=== PATIENT | male | born 1950 | race American Indian/Alaskan Native ===

== ENCOUNTER 2017-05-29 13:01 | Inpatient (IN) | payer MEDICARE ==
[2017-05-29] MEDS ORDERED: HEPARIN IV ONE (13:07)
[2017-05-29] MEDS ORDERED: NACL 0.9% 1000 ML 1,000 ML IV ONE (13:07)
--- NOTE | 2017-05-29 13:10 | Emergency Department Report ---
ED Chest Pain HPI - General Stated Complaint: STEMI Time Seen by Provider: 05/29/17 13:07 - History of Present Illness Initial Comments: 67-year-old [place]amese male presents to the emergency department by EMS from home with complaint of midsternal/substernal nonradiating chest pain that's been going on since about 2 AM. He received some sublingual nitroglycerin and aspirin in route and had some relief but not resolution. He was found by EMS to be diaphoretic. He has a past medical history of hypertension, hyperlipidemia, and diabetes. He denies any previous history of PR, CVA, PE/ DVT. He denies any tobacco or illicit drug use or abuse. He saw Dr. Monroy about one year ago for cardiology follow-up. - Related Data Home Medications Medication Instructions Recorded Confirmed Last Taken Losartan/Hydrochlorothiazide 1 each PO DAILY 05/27/13 03/08/16 03/08/16 [Hyzaar 100-25 TAB] Omeprazole [PriLOSEC] 20 mg PO QDAY 05/27/13 03/08/16 03/08/16 amLODIPine [Norvasc] 1 tab PO DAILY 05/27/13 03/08/16 03/08/16 glipiZIDE [Glucotrol] 10 mg PO QDAY 05/27/13 03/08/16 03/08/16 metFORMIN [Glucophage] 1,000 mg PO BID 05/27/13 03/08/16 03/08/16 Hydralazine HCl [Apresoline TAB] 50 mg PO Q12H 03/15/14 03/08/16 03/08/16 Latanoprost 0.005% [Xalatan 0.005%] 1 drop OP HS 06/10/15 03/08/16 03/07/16 Previous Rx's Medication Instructions Recorded Last Taken Type Atenolol [Tenormin] 50 mg PO DAILY tablet 02/07/15 03/08/16 Rx Pantoprazole [Protonix] 40 mg PO QDAY #30 tablet 03/09/16 Unknown Rx Allergies Allergy/AdvReac Type Severity Reaction Status Date / Time No Known Allergies Allergy Verified 05/29/17 13:08 Heart Score - HEART Score History: Highly suspicious EKG: Non-specific Age: 45-65 Risk factors: > 3 risk factors or hx of atherosclerotic disease Troponin: < normal limit HEART Score: 6 - Critical Actions Critical Actions: 4-6 pts:12-16.6% risk of adverse cardiac event. Should be admitted ED Review of Systems ROS: Stated complaint: STEMI Other details as noted in HPI Comment: All other systems reviewed and negative Constitutional: diaphoresis. denies: chills, fever Eyes: denies: eye pain, eye discharge, vision change ENT: denies: ear pain, throat pain Respiratory: denies: cough, wheezing Cardiovascular: chest pain. denies: palpitations Gastrointestinal: nausea. denies: abdominal pain Genitourinary: denies: urgency, dysuria Musculoskeletal: denies: back pain, joint swelling, arthralgia Skin: denies: rash, lesions Neurological: denies: headache, weakness, paresthesias ED Past Medical Hx - Past Medical History Hx Hypertension: Yes Hx Congestive Heart Failure: No Hx Diabetes: Yes (FOR 8 YRS) Hx Arthritis: Yes Hx Asthma: No Hx COPD: No Hx HIV: No Additional medical history: gout, hyperlipidemia. SLEEP APNEA - Surgical History Additional Surgical History: back surgery, R arm surgery,left hip replacemenrt 2014 - Social History Smoking Status: Never Smoker - Medications Home Medications: Home Medications Medication Instructions Recorded Confirmed Last Taken Type Losartan/Hydrochlorothiazide 1 each PO DAILY 05/27/13 03/08/16 03/08/16 History [Hyzaar 100-25 TAB] Omeprazole [PriLOSEC] 20 mg PO QDAY 05/27/13 03/08/16 03/08/16 History amLODIPine [Norvasc] 1 tab PO DAILY 05/27/13 03/08/16 03/08/16 History glipiZIDE [Glucotrol] 10 mg PO QDAY 05/27/13 03/08/16 03/08/16 History metFORMIN [Glucophage] 1,000 mg PO BID 05/27/13 03/08/16 03/08/16 History Hydralazine HCl [Apresoline TAB] 50 mg PO Q12H 03/15/14 03/08/16 03/08/16 History Atenolol [Tenormin] 50 mg PO DAILY tablet 02/07/15 03/08/16 03/08/16 Rx Latanoprost 0.005% [Xalatan 0.005%] 1 drop OP HS 06/10/15 03/08/16 03/07/16 History Pantoprazole [Protonix] 40 mg PO QDAY #30 tablet 03/09/16 Unknown Rx ED Physical Exam - Other Other exam information: GENERAL: The patient is well-developed well-nourished. HENT: Normocephalic. Atraumatic. Patient has moist mucous membranes. EYES: Extraocular motions are intact. Pupils equal reactive to light bilaterally. NECK: Supple. Trachea is midline. CHEST/LUNGS: Clear to auscultation. There is no respiratory distress noted. HEART/CARDIOVASCULAR: Regular. There is no tachycardia. There is no murmur. ABDOMEN: Abdomen is soft, nontender. Patient has normal bowel sounds. There is no abdominal distention. Obese habitus. SKIN: Patient is diaphoretic. NEURO: The patient is awake, alert, and oriented. The patient is cooperative. The patient has no focal neurologic deficits. The patient has normal speech. MUSCULOSKELETAL: There is no tenderness or deformity. There is no limitation range of motion. There is no evidence of acute injury. ED Course Vital Signs 05/29/17 05/29/17 05/29/17 13:03 13:10 13:12 Temperature 98.8 F 75 F L Pulse Rate 74 98 H Respiratory 16 16 16 Rate Blood Pressure 103/54 Blood Pressure 103/54 [Left] O2 Sat by Pulse 97 97 97 Oximetry 05/29/17 05/29/17 05/29/17 14:11 14:14 14:19 Temperature 97.9 F Pulse Rate 75 75 73 Respiratory 19 17 18 Rate Blood Pressure 132/72 135/75 136/94 Blood Pressure [Left] O2 Sat by Pulse 94 93 92 Oximetry 05/29/17 05/29/17 05/29/17 14:23 14:28 14:32 Temperature Pulse Rate 74 73 71 Respiratory 15 16 17 Rate Blood Pressure 124/68 137/72 127/72 Blood Pressure [Left] O2 Sat by Pulse 93 96 97 Oximetry 05/29/17 05/29/17 14:45 15:00 Temperature Pulse Rate 67 65 Respiratory 18 14 Rate Blood Pressure 124/73 104/41 Blood Pressure [Left] O2 Sat by Pulse 70 L 69 L Oximetry - Consultations Consultation #1: Since the patient last saw [facility], Dr. Monroy was contacted as the interventionalist on-call. He is aware of the patient's presentation and EKG findings and has been accepted to be transferred to the Screen Machine Operator for further evaluation. 05/29/17 13:09 BRANT score - Brant Score Age > 65: (0) No Aspirin use within the Past 7 Days: (1) Yes 3 or more CAD Risk Factors: (1) Yes 2 or more Angina events in past 24 hrs: (1) Yes Known CAD with more than 50% Stenosis: (0) No Elevated Cardiac Markers: (0) No ST Deviation Greater than 0.5mm: (1) Yes BRANT Score: 4 ED Medical Decision Making - Lab Data Result diagrams: 05/29/17 13:09 05/29/17 13:09 - EKG Data -: EKG Interpreted by Me EKG shows normal: sinus rhythm, axis (left axis deviation), intervals (left anterior fascicular block), QRS complexes (LVH), ST-T waves (ST elevation to the anterior and lateral leads, ST depression to lead 3 and aVF) Rate: normal - EKG Data When compared to previous EKG there are: previous EKG unavailable Interpretation: acute PR - Radiology Data Radiology results: image reviewed interpreted by me: Chest x-ray does not show any acute process. There are no pleural effusions, obvious pneumonia and there is no pneumothorax. - Medical Decision Making Patient presents with substernal chest pain and presents diaphoretic. He has multiple risk factors for coronary artery disease. EKG throughout both EMS and in the emergency department appear concerning for anterolateral PR. Labs have been unremarkable thus far. Patient went to the Screen Machine Operator after receiving heparin bolus and drip. He appears to have some significant RCA disease but it is nonobstructing at that time and no stent placement was necessary. At the request of the telecommunications field technician, the admitting hospitalist has been made aware and between the 2 of them they will decide who will be the admitting physician. - Differential Diagnosis STEMI, NSTEMI, ACS, Pneumonia Critical Care Time: No Critical care attestation.: If time is entered above; I have spent that time in minutes in the direct care of this critically ill patient, excluding procedure time. ED Disposition Clinical Impression: Chest tightness, Acute coronary syndrome Chest pain Qualifiers: Chest pain type: chest pain due to myocardial ischemia Qualified Code(s): I20.9 - Angina pectoris, unspecified Disposition: OP ADMIT IP TO THIS HOSP Is pt being admited?: Yes Condition: Fair Time of Disposition: 15:31
[2017-05-29 13:16] LABS: Basophils # (Auto) 0.1 K/mm3 (0.0-0.1); Basophils % (Auto) 0.9 % (0.0-1.8); Eosinophils # (Auto) 0.1 K/mm3 (0.0-0.4); Hemoglobin 14.9 gm/dl (11.8-15.2); Lymphocytes # (Auto) 2.4 K/mm3 (1.2-5.4); Lymphocytes % (Auto) 40.9 % (13.4-35.0); Mean Corpuscular HGB Conc 33 % (32-34); Mean Corpuscular Volume 78 fl (84-94); Monocytes # (Auto) 0.6 K/mm3 (0.0-0.8); Monocytes % (Auto) 10.8 % (0.0-7.3); Platelet Count 172 K/mm3 (140-440); Red Blood Count 5.79 M/mm3 (3.65-5.03); Red Cell Distribution Width 14.2 % (13.2-15.2)
[2017-05-29 13:19] LABS: Mean Corpuscular Hemoglobin 26 pg (28-32)
[2017-05-29] MEDS ORDERED: HEPARIN/ 0.45% NACL-25,000 UNIT/500 ML 25,000 UNIT/500 ML BAG IV SCH ×2 (13:22→14:00)
[2017-05-29] MEDS ORDERED: VERSED IV ONE (13:25)
[2017-05-29] MEDS ORDERED: HEPARIN/NS 5000 UNIT/500ML(CATH LAB) IR ONE (13:25)
[2017-05-29] MEDS ORDERED: SUBLIMAZE IV ONE (13:25)
[2017-05-29] MEDS ORDERED: XYLOCAINE 2% INFILTRATI ONE (13:26)
[2017-05-29 13:28] LABS: INR 0.94 (0.87-1.13)
[2017-05-29 13:38] LABS: BUN/Creatinine Ratio 7; Blood Urea Nitrogen 9 mg/dL (9-20); Calcium 8.3 mg/dL (8.4-10.2); Hemolysis Index 14
[2017-05-29] MEDS ORDERED: LASIX ONE (13:42)
[2017-05-29] MEDS ORDERED: PLAVIX PO ONE (14:00)
[2017-05-29] MEDS ORDERED: NACL 0.9% 1000 ML 1,000 ML IV SCH (14:00)
--- NOTE | 2017-05-29 14:08 | Consultation ---
History of Present Illness Consult date: 05/29/17 Consult reason: chest pain History of present illness: 67y M who is admitted with chest pain. ECG in ambulance and again in ER consistent with acute STEMI of lateral wall. Emergency cardiac cath: NO significant obstructive lesions corresponding with ST elevation on ECG. Recommended for medical therapy and aggressive RF modification. Non-obsrtuctive, moderate severity stenosis of the proximal RCA will be followed clinically and with stress thallium in the outpatient's. Past History Past Medical History: CAD, diabetes, hypertension Medications and Allergies Allergies Allergy/AdvReac Type Severity Reaction Status Date / Time No Known Allergies Allergy Verified 05/29/17 13:08 Home Medications Medication Instructions Recorded Confirmed Last Taken Type Losartan/Hydrochlorothiazide 1 each PO DAILY 05/27/13 03/08/16 03/08/16 History [Hyzaar 100-25 TAB] Omeprazole [PriLOSEC] 20 mg PO QDAY 05/27/13 03/08/16 03/08/16 History amLODIPine [Norvasc] 1 tab PO DAILY 05/27/13 03/08/16 03/08/16 History glipiZIDE [Glucotrol] 10 mg PO QDAY 05/27/13 03/08/16 03/08/16 History metFORMIN [Glucophage] 1,000 mg PO BID 05/27/13 03/08/16 03/08/16 History Hydralazine HCl [Apresoline TAB] 50 mg PO Q12H 03/15/14 03/08/16 03/08/16 History Atenolol [Tenormin] 50 mg PO DAILY tablet 02/07/15 03/08/16 03/08/16 Rx Latanoprost 0.005% [Xalatan 0.005%] 1 drop OP HS 06/10/15 03/08/16 03/07/16 History Pantoprazole [Protonix] 40 mg PO QDAY #30 tablet 03/09/16 Unknown Rx Active Meds: Active Medications Aspirin (Baby Aspirin) 81 mg PO QDAY [facility] Atorvastatin Calcium (Lipitor) 20 mg PO QHS [facility] Clopidogrel Bisulfate (Plavix) 300 mg PO ONCE ONE Stop: 05/29/17 14:01 Clopidogrel Bisulfate (Plavix) 75 mg PO QDAY [facility] Enoxaparin Sodium (Lovenox) 80 mg SUB-Q BID [facility] Sodium Chloride (Nacl 0.9% 1000 Ml) 1,000 mls @ 42 mls/hr IV ONCE ONE Stop: 05/30/17 12:55 Sodium Chloride (Nacl 0.9% 1000 Ml) 1,000 mls @ 75 mls/hr IV DIRECT CHER Stop: 05/29/17 23:59 Metoprolol Tartrate (Lopressor) 25 mg PO Q8H [facility] Nitroglycerin (Nitro-Bid 2%) 1 inch TP QIDNTG CHER PRN Reason: Protocol Review of Systems Cardiovascular: chest pain, shortness of breath, no orthopnea, no palpitations, no rapid/irregular heart beat, no edema, no syncope, no lightheadedness Physical Examination Vital Signs Temp Pulse Resp BP Pulse Ox 98.8 F 74 16 103/54 97 05/29/17 13:03 05/29/17 13:03 05/29/17 13:03 05/29/17 13:03 05/29/17 13:03 General appearance: no acute distress HEENT: Positive: PERRL Neck: Positive: neck supple Cardiac: Positive: Reg Rate and Rhythm Lungs: Positive: Decreased Breath Sounds Neuro: Positive: Grossly Intact Abdomen: Positive: Soft Male genitourinary: Positive: deferred Skin: Positive: Clear Extremities: Absent: edema Results 05/29/17 13:09 05/29/17 13:09 Cardiac Enzymes 05/29/17 Range/Units 13:09 CK-MB (CK-2) 7.0 H (0.0-4.0) ng/mL Coagulation 05/29/17 Range/Units 13:09 PT 13.0 (12.2-14.9) Sec. INR 0.94 (0.87-1.13) APTT 25.0 (24.2-36.6) Sec. CBC 05/29/17 Range/Units 13:09 WBC 6.0 (4.5-11.0) K/mm3 RBC 5.79 H (3.65-5.03) M/mm3 Hgb 14.9 (11.8-15.2) gm/dl Hct 45.0 (35.5-45.6) % Plt Count 172 (140-440) K/mm3 Lymph # 2.4 (1.2-5.4) K/mm3 [place] # 0.6 (0.0-0.8) K/mm3 Eos # 0.1 (0.0-0.4) K/mm3 Baso # 0.1 (0.0-0.1) K/mm3 Comprehensive Metabolic Panel 05/29/17 Range/Units 13:09 Sodium 123 L (137-145) mmol/L Potassium 3.2 L (3.6-5.0) mmol/L Chloride 82.1 L (98-107) mmol/L Carbon Dioxide 22 (22-30) mmol/L BUN 9 (9-20) mg/dL Creatinine 1.3 (0.8-1.5) mg/dL Glucose 125 H (75-100) mg/dL Calcium 8.3 L (8.4-10.2) mg/dL EKG interpretations - Telemetry EKG Rhythm: Sinus Rhythm (with lateral wall STEMI) Assessment and Plan - Patient Problems (1) STEMI (ST elevation myocardial infarction) Current Visit: Yes Status: Acute Plan to address problem: 67y M who is admitted with chest pain. ECG in ambulance and again in ER consistent with acute STEMI of lateral wall. Emergency cardiac cath: NO significant obstructive lesions corresponding with ST elevation on ECG. Recommended for medical therapy and aggressive RF modification. Non-obsrtuctive, moderate severity stenosis of the proximal RCA will be followed clinically and with stress thallium in the outpatient's
[2017-05-29] MEDS ORDERED: PLAVIX ONE (15:05)
[2017-05-29] MEDS ORDERED: HEPARIN 10,000 UNITS/10 ML ONE (17:30)
[2017-05-29] MEDS ORDERED: HEPARIN/ 0.45% NACL-25,000 UNIT/500 ML ONE (17:30)
[2017-05-29 17:38] LABS: Creatine Kinase MB 7.3 ng/mL (0.0-4.0)
[2017-05-29] MEDS: NITRO-BID 2% TP SCH (18:00)
[2017-05-29] MEDS ORDERED: NON-FORMULARY (Ranitidine Hcl [Zantac 150 Mg Tab] 150 MG) PO PRN (20:19)
--- NOTE | 2017-05-29 20:19 | Event Note ---
Date: 05/29/17 See dictated H/p in reports
--- NOTE | 2017-05-29 20:19 | Cardiac Catherization Report ---
REASON FOR PROCEDURE: The patient presented to the Emergency Room with chest pain, ECG in the ambulance and in the Emergency Room demonstrated ST elevation in leads I and aVL and V1 through V2, suspicious for an acute lateral wall ST elevation myocardial infarction. Emergency cardiac catheterization protocol was activated. PROCEDURES: 1. Selective left and right coronary angiography. 2. Left ventricular catheterization. 3. Left ventricular angiography. DESCRIPTION OF PROCEDURE: The patient was prepped and draped in a sterile fashion under emergency protocol. The right femoral artery was entered using the Seldinger technique followed by placement of a 6-Stateless sheath. Selective left and right coronary angiography was performed using a #4 right Luis Felipe catheter and an XB 3.5 guiding catheter. After review of the angiograms, a pigtail catheter was exchanged and inserted into the left ventricle and we performed left ventricle angiography. The catheters were then removed, and the patient returned to the postprocedure unit in stable condition. Sheaths removed and manual compression used for hemostasis. There were no complications, equipment malfunction, or technical difficulties. There were no complications. FINDINGS: HEMODYNAMICS: Left ventricle end-diastolic pressure was 35, following coronary angiography. Ascending aortic pressure was 135/86. There was no significant pressure gradient on pullback across the aortic valve. CORONARY ANGIOGRAPHY: The left main coronary artery was free of significant disease. The left anterior descending artery contained mild luminal irregularities in its proximal and mid segments. There was mild myocardial bridging of the mid LAD. No significant obstructive lesions were noted in either LAD or its diagonal branches. A large ramus intermedius artery contained mild disease of its proximal segment. No severe obstructive lesions were noted of the ramus intermedius. The circumflex artery contained mild luminal irregularities in its proximal AV groove segment. Following this, mild irregularities were noted of a large mid obtuse marginal. The AV groove circumflex then terminated in a very small caliber terminal obtuse marginal. There was a 70% stenosis of the distal circumflex leading into this small terminal obtuse marginal. The right coronary artery was dominant. CORONARY ANGIOGRAPHY: There was an eccentric, 50-60% stenosis of this vessel in its proximal to mid segment. This lesion was best seen in the TORRES projection. There was normal left ventricular chamber size and systolic function, ejection fraction 55-60%. CONCLUSION: 1. Coronary artery disease as above with moderate severity nonobstructive lesions of the proximal right coronary artery and the distal circumflex. 2. There are no significant lesions corresponding to ST elevation changes on his presenting EKG. 3. Well-preserved left ventricular systolic function, ejection fraction 55-60%. RECOMMENDATION: 1. Medical therapy and risk factor modification. 2. In the medium to long term care administrator, followup of the moderate severity right coronary artery disease by serial outpatient stress test. JOB# [id number] CA/NTS
[2017-05-29] MEDS ORDERED: HYDROCHLOROTHIAZIDE PO SCH (20:30)
[2017-05-29] MEDS ORDERED: LOSARTAN PO SCH (20:30)
[2017-05-29] MEDS: APRESOLINE PO SCH (21:45)
[2017-05-29] MEDS: LOVENOX SUB-Q SCH (21:45)
[2017-05-29] MEDS: NOVOLOG SUB-Q SCH (21:46)
[2017-05-29] MEDS: GLUCOTROL PO SCH (21:46)
[2017-05-29 21:55] LABS: Creatine Kinase MB 6.6 ng/mL (0.0-4.0)
[2017-05-29] MEDS: LOPRESSOR PO SCH (21:58)
[2017-05-29] MEDS ORDERED: XALATAN 0.005% OU SCH (22:00)
[2017-05-29] MEDS ORDERED: NON-FORMULARY (Hydralazine Hcl [Apresoline Tab] 50 MG) PO SCH (22:00)
[2017-05-29] MEDS: TYLENOL PO PRN (23:43)
[2017-05-29 23:48] LABS: Creatine Kinase MB 6.5 ng/mL (0.0-4.0)
[2017-05-30 03:59] LABS: Creatine Kinase MB 5.6 ng/mL (0.0-4.0)
[2017-05-30] MEDS: NITRO-BID 2% TP SCH ×4 (06:09→18:01)
[2017-05-30] MEDS: LOPRESSOR PO SCH ×3 (06:14→21:46)
[2017-05-30] MEDS: NOVOLOG SUB-Q SCH ×3 (07:39→18:00)
--- NOTE | 2017-05-30 08:22 | History and Physical Report ---
CHIEF COMPLAINT: Chest pain since 2:00 a.m. HISTORY OF PRESENT ILLNESS: A 67-year-old male comes to the Emergency Room with left-sided chest pain since 2:00 a.m. The patient came via EMS, received some nitroglycerin and aspirin, but with no relief. Chest pain is about 10/10. He was diaphoretic, not radiating, with substernal and sharp pain. Some shortness of breath present. No palpitations. The patient has a history of diabetes, hypertension, and hyperlipidemia. PAST MEDICAL HISTORY: Significant for no exacerbating or no relieving factors. PAST MEDICAL HISTORY: Significant for hypertension, diabetes, arthritis, hyperlipidemia, gout, and sleep apnea. PAST SURGICAL HISTORY: Significant for back surgery, right arm surgery, left hip replacement in 2015. SOCIAL HISTORY: Does not smoke. FAMILY HISTORY: Hypertension. CURRENT MEDICATIONS: Losartan 100/25 one tablet daily, Prilosec 20 mg p.o. daily, amlodipine 10 mg p.o. daily, glipizide 10 mg p.o. daily, metformin 1000 twice a day, hydralazine 50 mg p.o. q.12 hours, atenolol 50 mg p.o. daily, Xalatan eye drops 1 drop at bedtime, Protonix 40 mg p.o. daily. REVIEW OF SYSTEMS: Significant for left-sided chest pain. Otherwise, 14-point review of systems done is negative. PHYSICAL EXAMINATION: GENERAL: Elderly male, cooperative during the examination. VITAL SIGNS: Blood pressure 132/72, temperature is 98.8, pulse is 74, respirations are 16. HEENT: Unremarkable. Pupils are equal and reactive. NECK: Supple, no lymphadenopathy, no thyromegaly. LUNGS: Clear to auscultation and percussion. Good air entry. CARDIOVASCULAR: S1, S2 heard. No gallop, no murmur, no rub. Apical impulse in left fifth intercostal space and midclavicular line. ABDOMEN: Soft and benign. No hepatosplenomegaly. No guarding, no rigidity. Hernial orifices are normal. EXTREMITIES: Good pedal pulses. No pedal edema. CENTRAL NERVOUS SYSTEM: Alert and oriented x 4, nonfocal exam. LABORATORY DATA: Significant for white count of 6000, hemoglobin of 14.9, hematocrit of 45, platelet count of 172,000. Sodium is 123, potassium is 3.2. A1c is 7.8, BUN and creatinine of 9 and 1.3. Creatinine kinase is 569. CK-MB is 7, CK-MB index is 1.2. Troponin is 0.010. EKG shows normal sinus rhythm, left anterior fascicular block, ST elevation in the anterior leads and lateral leads, ST depression in lead 3 and aVF. ASSESSMENT AND PLAN: 1. STEMI. The patient was taken to the slab tripper and did not have any obstruction. The patient being treated as STEMI. The patient was started on IV heparin, which was discontinued after the cath procedure. Cath did not show any significant obstructive lesions corresponding with ST elevation on EKG. Cardiology recommended medical therapy and aggressive risk factor modification. There is moderately severe stenosis of the proximal RCA, which is to be followed clinically with Cardiology. Also, stress thallium as outpatient. 2. Hypertension. Continue losartan without the hydrochlorothiazide because of the hyponatremia and also amlodipine 3. Type 2 diabetes. Continue metformin, glipizide, and coverage. 4. Glaucoma. Continue latanoprost. 5. Hyponatremia. We will stop the hydrochlorothiazide. Check osmolality. 6. Hypokalemia, supplemented. 7. Deep venous thrombosis prophylaxis, Lovenox 40 mg subQ daily. JOB# [id number] [facility]/NTS
[2017-05-30] MEDS: APRESOLINE PO SCH ×2 (09:45→21:42)
[2017-05-30] MEDS: PLAVIX PO SCH (09:45)
[2017-05-30] MEDS: PEPCID PO PRN ×2 (09:46→21:46)
[2017-05-30] MEDS: TYLENOL PO PRN (09:46)
[2017-05-30] MEDS: NORVASC PO SCH (09:47)
[2017-05-30] MEDS: COZAAR PO SCH (09:48)
[2017-05-30] MEDS: LOVENOX SUB-Q SCH ×2 (09:50→13:38)
[2017-05-30] MEDS: BABY ASPIRIN PO SCH (09:50)
[2017-05-30] MEDS ORDERED: NON-FORMULARY (Atenolol 50 MG) PO SCH (10:00)
[2017-05-30] MEDS ORDERED: HCTZ PO SCH (10:00)
[2017-05-30] MEDS ORDERED: TENORMIN PO SCH (10:00)
[2017-05-30 10:38] LABS: Creatine Kinase MB 5.7 ng/mL (0.0-4.0)
[2017-05-30] MEDS: GLUCOTROL PO SCH ×2 (10:40→21:42)
--- NOTE | 2017-05-30 11:56 | Progress Note ---
Assessment and Plan - Patient Problems (1) STEMI (ST elevation myocardial infarction) Current Visit: Yes Status: Acute Plan to address problem: 67y M who is admitted with chest pain. ECG in ambulance and again in ER consistent with acute STEMI of lateral wall. Emergency cardiac cath: NO significant obstructive lesions corresponding with ST elevation on ECG. Recommended for medical therapy and aggressive RF modification. Non-obsrtuctive, moderate severity stenosis of the proximal RCA will be followed clinically and with stress thallium in the outpatient's Okay for cardiac discharge on current anti-ischemic medications an oral antiplatelet therapy. Subjective Date of service: 05/30/17 Interval history: Patient is comfortable, no further chest pain and no shortness of breath. Objective Vital Signs Temp Pulse Resp BP BP Pulse Ox 05/30/17 11:50 98.8 F 78 20 135/80 96 05/30/17 09:48 68 143/79 05/30/17 09:47 68 143/79 05/30/17 09:46 68 143/79 05/30/17 09:45 68 143/79 05/30/17 08:32 97.7 F 68 20 143/79 95 05/30/17 05:49 98.8 F 67 18 154/82 93 05/30/17 05:00 67 05/29/17 23:49 98.7 F 72 18 148/71 94 05/29/17 20:38 98.9 F 70 20 140/77 96 05/29/17 18:30 67 17 133/94 100 05/29/17 18:00 65 15 155/89 100 05/29/17 17:30 70 70 H 154/83 98 05/29/17 17:00 65 16 132/79 99 05/29/17 16:30 65 18 132/75 100 05/29/17 16:00 66 18 123/75 100 05/29/17 15:30 68 14 123/75 100 05/29/17 15:15 67 15 124/75 99 05/29/17 15:00 65 14 104/41 99 05/29/17 14:45 67 18 124/73 100 05/29/17 14:32 71 17 127/72 97 05/29/17 14:28 73 16 137/72 96 05/29/17 14:23 74 15 124/68 93 05/29/17 14:19 73 18 136/94 92 05/29/17 14:14 75 17 135/75 93 05/29/17 14:11 97.9 F 75 19 132/72 94 05/29/17 13:12 16 97 05/29/17 13:10 75 F L 98 H 16 103/54 97 05/29/17 13:03 98.8 F 74 16 103/54 97 - Physical Examination General: No Apparent Distress HEENT: Positive: PERRL Neck: Positive: neck supple Cardiac: Positive: Reg Rate and Rhythm Lungs: Positive: Decreased Breath Sounds Neuro: Positive: Grossly Intact Abdomen: Positive: Soft Skin: Positive: Clear Extremities: Absent: edema - Labs and Meds Cardiac Enzymes 05/29/17 05/29/17 05/29/17 Range/Units 13:09 16:07 21:15 CK-MB (CK-2) 7.0 H 7.3 H 6.6 H (0.0-4.0) ng/mL 05/29/17 05/30/17 05/30/17 Range/Units 22:50 03:13 08:20 CK-MB (CK-2) 6.5 H 5.6 H 5.7 H (0.0-4.0) ng/mL Coagulation 05/29/17 Range/Units 13:09 PT 13.0 (12.2-14.9) Sec. INR 0.94 (0.87-1.13) APTT 25.0 (24.2-36.6) Sec. CBC 05/29/17 Range/Units 13:09 WBC 6.0 (4.5-11.0) K/mm3 RBC 5.79 H (3.65-5.03) M/mm3 Hgb 14.9 (11.8-15.2) gm/dl Hct 45.0 (35.5-45.6) % Plt Count 172 (140-440) K/mm3 Lymph # 2.4 (1.2-5.4) K/mm3 [place] # 0.6 (0.0-0.8) K/mm3 Eos # 0.1 (0.0-0.4) K/mm3 Baso # 0.1 (0.0-0.1) K/mm3 Comprehensive Metabolic Panel 05/29/17 Range/Units 13:09 Sodium 123 L (137-145) mmol/L Potassium 3.2 L (3.6-5.0) mmol/L Chloride 82.1 L (98-107) mmol/L Carbon Dioxide 22 (22-30) mmol/L BUN 9 (9-20) mg/dL Creatinine 1.3 (0.8-1.5) mg/dL Glucose 125 H (75-100) mg/dL Calcium 8.3 L (8.4-10.2) mg/dL
--- NOTE | 2017-05-30 14:58 | Progress Note ---
Assessment and Plan Assessment and plan: Patient is a 67 yo man with h/o HTN, DLP, oa, maida, gout and arthritis who presented with chest pains. He was found to have STEMI and sent to cardiac lab tester. Hospitalization admitted patient as a courtesy to Cardiology. per Cardiology, Dr. Monroy - Patient Problems (1) STEMI (ST elevation myocardial infarction) Current Visit: Yes Status: Acute Plan to address problem: 67y M who is admitted with chest pain. ECG in ambulance and again in ER consistent with acute STEMI of lateral wall. Emergency cardiac cath: NO significant obstructive lesions corresponding with ST elevation on ECG. Recommended for medical therapy and aggressive RF modification. Non-obsrtuctive, moderate severity stenosis of the proximal RCA will be followed clinically and with stress thallium in the outpatient's Okay for cardiac discharge on current anti-ischemic medications an oral antiplatelet therapy. -STEMI: medical management -Severe hyponatremia, Na level was 123: ordered stat bmp -Hypokalemia: repeat within bmp -HTN: continue antihypertensives -DM type 2: control glucotrol. if sodium level close to 130 and potassium level stable then discharge per Cardiology recommendations. History Interval history: Patient seen and examined, No cp, no sob. no n/v Hospitalist Physical - Physical exam Narrative exam: gen: nad a/o x 3 cvs: rrr, normal s1s2 lungs: cta b abd: soft ntnd, gbs msk: no c/c/e neuro: no focal deficits psy: calm - Constitutional Vitals: Temp Pulse Resp BP Pulse Ox 98.8 F 78 20 135/80 96 05/30/17 11:50 05/30/17 13:40 05/30/17 11:50 05/30/17 13:40 05/30/17 11:50 General appearance: Present: no acute distress Results - Labs CBC & Chem 7: 05/29/17 13:09 05/29/17 13:09 Labs: Laboratory Last Values WBC 6.0 K/mm3 (4.5-11.0) 05/29/17 13:09 RBC 5.79 M/mm3 (3.65-5.03) H 05/29/17 13:09 Hgb 14.9 gm/dl (11.8-15.2) 05/29/17 13:09 Hct 45.0 % (35.5-45.6) 05/29/17 13:09 MCV 78 fl (84-94) L 05/29/17 13:09 MCH 26 pg (28-32) L 05/29/17 13:09 MCHC 33 % (32-34) 05/29/17 13:09 RDW 14.2 % (13.2-15.2) 05/29/17 13:09 Plt Count 172 K/mm3 (140-440) 05/29/17 13:09 Lymph % (Auto) 40.9 % (13.4-35.0) H 05/29/17 13:09 [place] % (Auto) 10.8 % (0.0-7.3) H 05/29/17 13:09 Eos % (Auto) 2.0 % (0.0-4.3) 05/29/17 13:09 Baso % (Auto) 0.9 % (0.0-1.8) 05/29/17 13:09 Lymph # 2.4 K/mm3 (1.2-5.4) 05/29/17 13:09 [place] # 0.6 K/mm3 (0.0-0.8) 05/29/17 13:09 Eos # 0.1 K/mm3 (0.0-0.4) 05/29/17 13:09 Baso # 0.1 K/mm3 (0.0-0.1) 05/29/17 13:09 Seg Neutrophils % 45.4 % (40.0-70.0) 05/29/17 13:09 Seg Neutrophils # 2.7 K/mm3 (1.8-7.7) 05/29/17 13:09 PT 13.0 Sec. (12.2-14.9) 05/29/17 13:09 INR 0.94 (0.87-1.13) 05/29/17 13:09 APTT 25.0 Sec. (24.2-36.6) 05/29/17 13:09 Sodium 123 mmol/L (137-145) L 05/29/17 13:09 Potassium 3.2 mmol/L (3.6-5.0) L 05/29/17 13:09 Chloride 82.1 mmol/L (98-107) L 05/29/17 13:09 Carbon Dioxide 22 mmol/L (22-30) 05/29/17 13:09 Anion Gap 22 mmol/L 05/29/17 13:09 BUN 9 mg/dL (9-20) 05/29/17 13:09 Creatinine 1.3 mg/dL (0.8-1.5) 05/29/17 13:09 Estimated GFR > 60 ml/min 05/29/17 13:09 BUN/Creatinine Ratio 7 % 05/29/17 13:09 Glucose 125 mg/dL (75-100) H 05/29/17 13:09 POC Glucose 98 (70-105) 05/29/17 21:46 Hemoglobin A1c 7.8 % (4-6) H 05/30/17 05:21 Osmolality 265 Mosm/kg 05/30/17 08:20 Calcium 8.3 mg/dL (8.4-10.2) L 05/29/17 13:09 Total Creatine Kinase 647 units/L (55-170) H 05/30/17 08:20 CK-MB (CK-2) 5.7 ng/mL (0.0-4.0) H 05/30/17 08:20 CK-MB (CK-2) Rel Index 0.8 (0-4) 05/30/17 08:20 Troponin T < 0.010 ng/mL (0.00-0.029) 05/30/17 08:20 Blood Type B POSITIVE 05/29/17 13:09 Antibody Screen TNR 05/29/17 13:09 EDGARD Antibody Screen Negative 05/29/17 13:09
--- NOTE | 2017-05-30 15:19 | Discharge Summary ---
Providers - Providers Date of Admission: 05/29/17 16:41 Date of discharge: 05/31/17 Attending physician: SHAE MAY 05/29/17 13:59 Consult to Cardiac Rehabilitation [CONS] Routine Reason For Exam: Cardiac Rehab Evaluation 05/29/17 20:28 Consult to Physician [CONS] Routine Consulting Provider: CORRINE WORKMAN Reason For Exam: NSTEMI Place consult to:: Dr. Workman Notified:: Sudha SHIRLEY Phone number called:: Was contact made?: Yes If yes, spoke with:: Bridget-answering service Time called:: 08:16 Primary care physician: EMILIA CANSECO Hospitalization Condition: Stable Hospital course: Patient is a 67 yo man with h/o HTN, DLP, oa, maida, gout and arthritis who presented with chest pains. He was found to have STEMI and sent to cardiac warehouse laborer. Hospitalization admitted patient as a courtesy to Cardiology. per Cardiology, Dr. Workman - Patient Problems (1) STEMI (ST elevation myocardial infarction) Current Visit: Yes Status: Acute Plan to address problem: 67y M who is admitted with chest pain. ECG in ambulance and again in ER consistent with acute STEMI of lateral wall. Emergency cardiac cath: NO significant obstructive lesions corresponding with ST elevation on ECG. Recommended for medical therapy and aggressive RF modification. Non-obsrtuctive, moderate severity stenosis of the proximal RCA will be followed clinically and with stress thallium in the outpatient's Okay for cardiac discharge on current anti-ischemic medications an oral antiplatelet therapy. -STEMI: medical management -Severe hyponatremia, Na level was 123: ordered stat bmp -Hypokalemia: repeat within bmp -HTN: continue antihypertensives -DM type 2: control glucotrol. IF sodium level close to 130 and potassium level stable then discharge per Cardiology recommendations. Electrolytes imbalance most likely due to hctz, which was stopped Disposition: DC-01 TO HOME OR SELFCARE Time spent for discharge: 35 minutes Core Measure Documentation - Palliative Care Palliative Care/ Comfort Measures: Not Applicable - Core Measures Any of the following diagnoses?: acute VA - VTE Discharge Requirements Deep Vein Thrombosis/Pulmonary Embolism Present on Admission: No Has pt received <5 days of overlap therapy or INR<2.0: No Anticoagulant overlap therapy prescribed at discharge: No Contraindication No Overlap Therapy order at DC: Not Indicated - Acute [facility] Discharge Requirements Aspirin at discharge: Yes [place]/ARB for LVSD if EF <40%: Yes Beta jose at discharge: Yes Statin for LDL = or >100 mg/dl on DC: Yes Exam - Physical Exam Narrative exam: gen: nad a/o x 3 cvs: rrr, normal s1s2 lungs: cta b abd: soft ntnd, gbs msk: no c/c/e neuro: no focal deficits psy: calm - Constitutional Vitals: Temp Pulse Resp BP Pulse Ox 98.8 F 78 20 135/80 96 05/30/17 11:50 05/30/17 13:40 05/30/17 11:50 05/30/17 13:40 05/30/17 11:50 Plan Activity: other (no strenous activity until cleared by Cardiology) Diet: low salt Follow up with: EMILIA CANSECO MD [Primary Care Provider] - 3-5 Days CORRINE WORKMAN MD [Staff Physician] - 7 Days Prescriptions: RX: AtorvaSTATin [Lipitor] 20 mg PO QHS #30 tablet RX: amLODIPine [Norvasc] 5 mg PO DAILY #30 tablet RX: Aspirin [Aspirin BABY CHEW TAB] 81 mg PO QDAY #30 tab.chew RX: Clopidogrel [Plavix] 75 mg PO QDAY #30 tablet RX: Famotidine [Pepcid] 20 mg PO BID #30 tablet RX: hydrALAZINE [Apresoline TAB] 50 mg PO BID #60 tablet RX: Losartan [Cozaar] 100 mg PO QDAY #30 tablet RX: Metoprolol [Lopressor TAB] 25 mg PO Q8H #90 tablet
[2017-05-30 16:16] LABS: BUN/Creatinine Ratio 12; Blood Urea Nitrogen 15 mg/dL (9-20); Calcium 8.3 mg/dL (8.4-10.2); Hemolysis Index 16
[2017-05-30] MEDS: NACL 0.9% 1000 ML 1,000 ML IV SCH (17:59)
[2017-05-30 18:02] LABS: Chol/HDL Ratio 5.74 %
[2017-05-30] MEDS ORDERED: K-DUR PO ONE (18:30)
[2017-05-31] MEDS: TYLENOL PO PRN (00:59)
[2017-05-31] MEDS: NITRO-BID 2% TP SCH ×2 (06:25→12:36)
[2017-05-31] MEDS: LOPRESSOR PO SCH (06:31)
[2017-05-31] MEDS: NACL 0.9% 1000 ML 1,000 ML IV SCH (06:32)
[2017-05-31 07:39] LABS: BUN/Creatinine Ratio 9; Blood Urea Nitrogen 11 mg/dL (9-20); Calcium 8.6 mg/dL (8.4-10.2); Hemolysis Index 12
[2017-05-31] MEDS: NOVOLOG SUB-Q SCH ×2 (08:00→12:58)
[2017-05-31] MEDS ORDERED: K-DUR PO ONE (11:00)
[2017-05-31] MEDS: LOVENOX SUB-Q SCH (12:24)
[2017-05-31] MEDS: BABY ASPIRIN PO SCH (12:25)
[2017-05-31] MEDS: COZAAR PO SCH (12:25)
[2017-05-31] MEDS: GLUCOTROL PO SCH (12:28)
[2017-05-31] MEDS: APRESOLINE PO SCH (12:28)
[2017-05-31] MEDS: PLAVIX PO SCH (12:30)
[2017-05-31] MEDS: NORVASC PO SCH (12:57)
--- NOTE | 2017-05-31 12:57 | Progress Note ---
Assessment and Plan - Patient Problems (1) STEMI (ST elevation myocardial infarction) Current Visit: Yes Status: Acute Plan to address problem: 67y M who is admitted with chest pain. ECG in ambulance and again in ER consistent with acute STEMI of lateral wall. Emergency cardiac cath: NO significant obstructive lesions corresponding with ST elevation on ECG. Recommended for medical therapy and aggressive RF modification. Non-obsrtuctive, moderate severity stenosis of the proximal RCA will be followed clinically and with stress thallium in the outpatient's Okay for cardiac discharge on current anti-ischemic medications an oral antiplatelet therapy. Subjective Date of service: 05/31/17 Interval history: Patient is comfortable, no further chest pain and no shortness of breath. Objective Vital Signs Temp Pulse Resp BP BP Pulse Ox 05/31/17 12:36 100 H 05/31/17 12:28 100 H 05/31/17 12:25 100 H 05/31/17 03:46 98.7 F 69 20 133/82 93 05/31/17 00:22 98.7 F 68 20 163/100 98 05/30/17 20:40 99 05/30/17 19:49 98.1 F 68 18 154/86 97 05/30/17 19:25 69 05/30/17 17:08 98.4 F 67 20 124/68 96 05/30/17 16:04 98.4 F 68 20 124/68 96 05/30/17 13:40 78 135/80 - Physical Examination General: No Apparent Distress HEENT: Positive: PERRL Neck: Positive: neck supple Cardiac: Positive: Reg Rate and Rhythm Lungs: Positive: Decreased Breath Sounds Neuro: Positive: Grossly Intact Abdomen: Positive: Soft Skin: Positive: Clear Extremities: Absent: edema - Labs and Meds Lipids 05/30/17 Range/Units 15:42 Triglycerides 305 H (2-149) mg/dL Cholesterol 201 H (50-199) mg/dL HDL Cholesterol 35 L (40-59) mg/dL Cholesterol/HDL Ratio 5.74 % Comprehensive Metabolic Panel 05/30/17 05/31/17 Range/Units 15:42 06:32 Sodium 125 L 129 L (137-145) mmol/L Potassium 3.4 L 3.3 L (3.6-5.0) mmol/L Chloride 84.1 L 88.6 L (98-107) mmol/L Carbon Dioxide 26 27 (22-30) mmol/L BUN 15 11 (9-20) mg/dL Creatinine 1.3 1.2 (0.8-1.5) mg/dL Glucose 188 H 134 H (75-100) mg/dL Calcium 8.3 L 8.6 (8.4-10.2) mg/dL
[2017-05-31 12:59] VITALS: BP 151/80
--- NOTE | 2017-06-02 07:47 | XRay Report ---
FINAL REPORT EXAM: XR CHEST 1V AP HISTORY: chest pain TECHNIQUE: A portable supine view of the chest was submitted. FINDINGS: The heart size and mediastinum appear normal. The lungs are clear. There are EKG leads overlying the chest wall. The bones and soft tissues appear normal. IMPRESSION: Normal chest.
== END 2017-05-31 14:56 | disposition home or self-care (01) | DRG 281 ==
LOC: ED 13:01 → CATH 15:01 → 4A 16:41
PROVIDERS: ADMIT Internal Medicine; ATTEND Internal Medicine
PROC: 4A023N7 Measurement of Cardiac Sampling and Pressure, Left Heart, Percutaneous Approach (ICD-10-PCS; principal; 2017-05-29)
PROC: B2111ZZ Fluoroscopy of Multiple Coronary Arteries using Low Osmolar Contrast (ICD-10-PCS; 2017-05-29)
PROC: B2151ZZ Fluoroscopy of Left Heart using Low Osmolar Contrast (ICD-10-PCS; 2017-05-29)
DX: I21.29 ST elevation (STEMI) myocardial infarction involving other sites (principal); E87.1 Hypo-osmolality and hyponatremia; I25.10 Atherosclerotic heart disease of native coronary artery without angina pectoris; I10 Essential (primary) hypertension; E78.5 Hyperlipidemia, unspecified; E11.9 Type 2 diabetes mellitus without complications; M19.90 Unspecified osteoarthritis, unspecified site; M10.9 Gout, unspecified; Z96.642 Presence of left artificial hip joint; H40.9 Unspecified glaucoma; E87.6 Hypokalemia; G47.33 Obstructive sleep apnea (adult) (pediatric); Z79.899 Other long term (current) drug therapy
CPT/HCPCS: 36415; 71010; 80048; 80061; 82550; 82553; 82962; 83036; 83930; 84484; 85025; 85347; 85610; 85730; 86850; 86900; 86901; 93005; 93010; 93458; A9270-GY; C1894; J1644; J1650; J1940; J2250; J3010; J7030; Q9967

== ENCOUNTER 2018-07-27 11:47 | Inpatient (IN) | payer MEDICARE ==
--- NOTE | 2018-07-27 12:11 | Emergency Department Report ---
ED Chest Pain HPI - General Stated Complaint: CHEST PAIN Time Seen by Provider: 07/27/18 11:56 - History of Present Illness Initial Comments: Mr. Pierre is a pleasant 68 yo male with hx of CAD, DM, HTN, dyslipidemia, BPH who presents with chest pain and shortness of breath which occurred suddenly at rest. Chest pain began approximately 1 hour after eating breakfast. He tried to lay down but could not get comfortable. 7/10 chest tightness with shortness of breath. Sitting up improved shortness of breath. After aspirin and nitroglycerin, pain is now 4 out of 10. Has had cardiac cath on previous occasion without stent. His heading and priming tool setter is Dr. Monroy. His PCP is Dr. Matthews. -: Sudden Onset: during rest Pain Location: substernal Pain Radiation: none Severity: moderate Severity scale (0 -10): 7 Quality: tightness Consistency: constant Improves With: nitroglycerin Worsens With: nothing - Related Data Home Medications Medication Instructions Recorded Confirmed Last Taken glipiZIDE [Glucotrol] 10 mg PO BID 05/27/13 04/30/18 05/28/17 Latanoprost 0.005% 1 drop OP HS 06/10/15 05/03/18 05/02/18 Lotemax 0.5% 1 drop OU TID 04/30/18 05/03/18 05/02/18 Tamsulosin HCl 1 cap PO DAILY 04/30/18 05/03/18 05/01/18 Tradjenta 1 tab PO DAILY 04/30/18 05/03/18 05/01/18 Hydrazine Sulfate 100 mg PO DAILY 05/03/18 05/03/18 05/01/18 Losartan-Hctz 100-25 mg Tab 1 tab PO 05/03/18 05/01/18 Previous Rx's Medication Instructions Recorded Last Taken Type Acetaminophen [Acetaminophen TAB] 325 mg PO Q6H PRN #30 tablet 05/30/17 Unknown Rx Aspirin [Aspirin BABY CHEW TAB] 81 mg PO QDAY #30 tab.chew 05/30/17 Unknown Rx AtorvaSTATin [Lipitor] 20 mg PO QHS #30 tablet 05/30/17 05/01/18 Rx Famotidine [Pepcid] 20 mg PO BID #30 tablet 05/30/17 05/01/18 Rx Losartan [Cozaar] 100 mg PO QDAY #30 tablet 05/30/17 Unknown Rx amLODIPine [Norvasc] 5 mg PO DAILY #30 tablet 05/30/17 05/01/18 Rx hydrALAZINE [Apresoline TAB] 50 mg PO BID #60 tablet 05/30/17 05/01/18 Rx Allergies Allergy/AdvReac Type Severity Reaction Status Date / Time No Known Allergies Allergy Verified 05/29/17 13:08 Heart Score - HEART Score History: Slightly suspicious EKG: Normal Age: > 65 Risk factors: > 3 risk factors or hx of atherosclerotic disease Troponin: < normal limit HEART Score: 4 ED Review of Systems ROS: Stated complaint: CHEST PAIN Other details as noted in HPI Comment: All other systems reviewed and negative Constitutional: denies: fever, malaise Gastrointestinal: denies: abdominal pain, nausea, vomiting Skin: denies: rash, lesions Neurological: denies: headache, weakness ED Past Medical Hx - Past Medical History Previous Medical History?: Yes Hx Hypertension: Yes (elevated cholesterol) Hx Congestive Heart Failure: No Hx Diabetes: Yes (FOR 8 YRS) Hx GERD: Yes Hx Arthritis: Yes Hx Asthma: No Hx COPD: No Hx HIV: No Additional medical history: gout, hyperlipidemia. SLEEP APNEA - Surgical History Additional Surgical History: back surgery, R arm surgery,left hip replacemenrt 2014 - Social History Smoking Status: Never Smoker - Medications Home Medications: Home Medications Medication Instructions Recorded Confirmed Last Taken Type glipiZIDE [Glucotrol] 10 mg PO BID 05/27/13 04/30/18 05/28/17 History Latanoprost 0.005% 1 drop OP HS 06/10/15 05/03/18 05/02/18 History Acetaminophen [Acetaminophen TAB] 325 mg PO Q6H PRN #30 tablet 05/30/17 04/30/18 Unknown Rx Aspirin [Aspirin BABY CHEW TAB] 81 mg PO QDAY #30 tab.chew 05/30/17 04/30/18 Unknown Rx AtorvaSTATin [Lipitor] 20 mg PO QHS #30 tablet 05/30/17 05/03/18 05/01/18 Rx Famotidine [Pepcid] 20 mg PO BID #30 tablet 05/30/17 05/03/18 05/01/18 Rx Losartan [Cozaar] 100 mg PO QDAY #30 tablet 05/30/17 04/30/18 Unknown Rx amLODIPine [Norvasc] 5 mg PO DAILY #30 tablet 05/30/17 05/03/18 05/01/18 Rx hydrALAZINE [Apresoline TAB] 50 mg PO BID #60 tablet 05/30/17 05/03/18 05/01/18 Rx Lotemax 0.5% 1 drop OU TID 04/30/18 05/03/18 05/02/18 History Tamsulosin HCl 1 cap PO DAILY 04/30/18 05/03/18 05/01/18 History Tradjenta 1 tab PO DAILY 04/30/18 05/03/18 05/01/18 History Hydrazine Sulfate 100 mg PO DAILY 05/03/18 05/03/18 05/01/18 History Losartan-Hctz 100-25 mg Tab 1 tab PO 05/03/18 05/01/18 History ED Physical Exam - General General appearance: alert, in no apparent distress - Head Head exam: Present: atraumatic, normocephalic - Eye Eye exam: Present: normal appearance - ENT ENT exam: Present: mucous membranes moist - Neck Neck exam: Present: normal inspection, full ROM - Respiratory Respiratory exam: Present: normal lung sounds bilaterally. Absent: respiratory distress, wheezes, rales, rhonchi - Cardiovascular Cardiovascular Exam: Present: regular rate, normal rhythm, normal heart sounds. Absent: systolic murmur, diastolic murmur, rubs, gallop - GI/Abdominal GI/Abdominal exam: Present: soft, normal bowel sounds. Absent: distended, tenderness, guarding, rebound - Rectal Rectal exam: Present: deferred - Extremities Exam Extremities exam: Present: normal inspection - Back Exam Back exam: Present: normal inspection - Neurological Exam Neurological exam: Present: alert, oriented X3 - Psychiatric Psychiatric exam: Present: normal affect, depressed (tearful) - Skin Skin exam: Present: warm, dry, intact, normal color. Absent: rash ED Course Vital Signs 07/27/18 07/27/18 12:02 12:52 Temperature 97.7 F Pulse Rate 97 H Respiratory 17 18 Rate Blood Pressure 112/59 Blood Pressure 112/59 [Right] O2 Sat by Pulse 100 Oximetry BRANT score - Brant Score Age > 65: (0) No Aspirin use within the Past 7 Days: (1) Yes 3 or more CAD Risk Factors: (1) Yes 2 or more Angina events in past 24 hrs: (1) Yes Known CAD with more than 50% Stenosis: (0) No Elevated Cardiac Markers: (0) No ST Deviation Greater than 0.5mm: (1) Yes BRANT Score: 4 ED Medical Decision Making - Lab Data Result diagrams: 07/27/18 13:01 07/27/18 13:01 - EKG Data Interpretation: no acute changes, LVH 07/27/18 12:13 EKG obtaine 1152 Rate 70 beats a minute left axis deviation positive LVH no T-wave abnormality Q waves in the lateral leads no significant ST elevation - Medical Decision Making Mr. Pierre presents with chest pain and dyspnea sudden onset at rest. I requested Dr. Monroy to evaluate EKG transmitted prior to patient arrival. Dr. Monroy did not see evidence of STEMI only LVH with left anterior fascicular block. Symptoms improved with ASA and nitroglycerin provided per EMS. With hx of RCA lesion on previous cardiac cath, unstable angina is a consideration. Admitted to hospitalist service I do not suspect PE on this presentation. Possible GI process. Critical care attestation.: If time is entered above; I have spent that time in minutes in the direct care of this critically ill patient, excluding procedure time. ED Disposition Clinical Impression: Acute coronary syndrome Disposition: DC-09 OP ADMIT IP TO THIS HOSP Is pt being admited?: Yes Does the pt Need Aspirin: No Condition: Stable
[2018-07-27] MEDS ORDERED: TYLENOL PO ONE (12:44)
--- NOTE | 2018-07-27 13:09 | XRay Report ---
AP CHEST: HISTORY: chest pain AP view of the chest demonstrates a normal mediastinal and cardiac contour with clear lungs and normal bony and soft tissue structures. IMPRESSION: Unremarkable AP chest.
[2018-07-27 13:17] LABS: Eosinophils # (Auto) 0.1 K/mm3 (0.0-0.4); Eosinophils % (Auto) 3.7 % (0.0-4.3); Hematocrit 48.8 % (35.5-45.6); Hemoglobin 16.2 gm/dl (11.8-15.2); Lymphocytes # (Auto) 1.4 K/mm3 (1.2-5.4); Lymphocytes % (Auto) 36.8 % (13.4-35.0); Mean Corpuscular HGB Conc 33 % (32-34); Mean Corpuscular Volume 78 fl (84-94); Monocytes # (Auto) 0.4 K/mm3 (0.0-0.8); Monocytes % (Auto) 9.9 % (0.0-7.3); Platelet Count 132 K/mm3 (140-440); Red Cell Distribution Width 15.4 % (13.2-15.2)
[2018-07-27 13:31] LABS: Alanine Aminotransferase 23 units/L (7-56); Albumin 3.9 g/dL (3.9-5); BUN/Creatinine Ratio 11; Blood Urea Nitrogen 14 mg/dL (9-20); Calcium 8.9 mg/dL (8.4-10.2); Hemolysis Index 24
[2018-07-27] MEDS ORDERED: SODIUM CHLORIDE FLUSH SYRINGE 10 ML IV PRN ×2 (14:37)
[2018-07-27] MEDS ORDERED: TYLENOL PO PRN (14:37)
[2018-07-27] MEDS ORDERED: NITROSTAT SL PRN (14:37)
[2018-07-27] MEDS ORDERED: ZOFRAN IV PRN (14:37)
[2018-07-27] MEDS ORDERED: MORPHINE IV PRN (14:37)
[2018-07-27] MEDS ORDERED: BABY ASPIRIN PO STA (14:37)
[2018-07-27] MEDS ORDERED: PROVENTIL IH PRN (14:37)
[2018-07-27 15:22] LABS: Chol/HDL Ratio 4.92 %
[2018-07-27] MEDS ORDERED: MORPHINE ONE (16:33)
[2018-07-27] MEDS ORDERED: PEPCID PO SCH (22:00)
[2018-07-27] MEDS: SODIUM CHLORIDE FLUSH SYRINGE 10 ML IV SCH (22:17)
[2018-07-28] MEDS ORDERED: LATANOPROST 0.005% OU SCH (02:15)
--- NOTE | 2018-07-28 06:13 | History and Physical Report ---
History of Present Illness Date of admission: 07/27/18 14:37 Chief complaint: My chest hurts History of present illness: 68 YO Male with CAD, HTN, DM, Obesity Hypoventilation Syndrome, BPH, GERD, DEBORAH, Diastolic CHF, OA presents to ED for evaluation. Pt states that he experienced sudden onset of chest pain this morning. Pt states the pain began approximately 1 hour after eating breakfast. Pt states that pain is 7-8/10, substernal, nonradiating, worsened with exertion, relieved with nitro, crushing in nature, constant. Pt acknowledges shortness of breath, Orthopnea, PND, decreased exerc ise tolerance. EMS notified, and patient found to be in distress. Pt transported to [facility]. Pt seen and evaluated in ED and found to have Chest Pain and Diastolic CHF. Pt admitted to telemetry, Cardiology consulted in ED. Past History Past Medical History: CAD, diabetes, GERD, heart failure, hypertension Past Surgical History: total hip replacement, Other (Back, Arm surgery) Social history: , lives with family. denies: smoking, alcohol abuse, prescription drug abuse Family history: diabetes, hypertension Medications and Allergies Allergies Allergy/AdvReac Type Severity Reaction Status Date / Time No Known Allergies Allergy Verified 05/29/17 13:08 Home Medications Medication Instructions Recorded Confirmed Last Taken Type glipiZIDE [Glucotrol] 10 mg PO BID 05/27/13 04/30/18 05/28/17 History Latanoprost 0.005% 1 drop OP HS 06/10/15 05/03/18 05/02/18 History Acetaminophen [Acetaminophen TAB] 325 mg PO Q6H PRN #30 tablet 05/30/17 04/30/18 Unknown Rx Aspirin [Aspirin BABY CHEW TAB] 81 mg PO QDAY #30 tab.chew 05/30/17 04/30/18 Unknown Rx AtorvaSTATin [Lipitor] 20 mg PO QHS #30 tablet 05/30/17 05/03/18 05/01/18 Rx Famotidine [Pepcid] 20 mg PO BID #30 tablet 05/30/17 05/03/18 05/01/18 Rx Losartan [Cozaar] 100 mg PO QDAY #30 tablet 05/30/17 04/30/18 Unknown Rx amLODIPine [Norvasc] 5 mg PO DAILY #30 tablet 05/30/17 05/03/18 05/01/18 Rx hydrALAZINE [Apresoline TAB] 50 mg PO BID #60 tablet 05/30/17 05/03/18 05/01/18 Rx Lotemax 0.5% 1 drop OU TID 04/30/18 05/03/18 05/02/18 History Tamsulosin HCl 1 cap PO DAILY 04/30/18 05/03/18 05/01/18 History Tradjenta 1 tab PO DAILY 04/30/18 05/03/18 05/01/18 History Hydrazine Sulfate 100 mg PO DAILY 05/03/18 05/03/18 05/01/18 History Losartan-Hctz 100-25 mg Tab 1 tab PO 05/03/18 05/01/18 History Active Meds: Active Medications Acetaminophen (Tylenol) 650 mg PO Q4H PRN PRN Reason: Pain MILD(1-3)/Fever >100.5/[place] Albuterol (Proventil) 2.5 mg IH Q4HRT PRN PRN Reason: Shortness Of Breath Famotidine (Pepcid) 10 mg PO BID [facility] Last Admin: 07/27/18 22:17 Dose: 10 mg Documented by: Latanoprost (Latanoprost 0.005%) 1 drops OU QHS [facility] Last Admin: 07/28/18 02:19 Dose: 1 drops Documented by: Morphine Sulfate (Morphine) 2 mg IV Q4H PRN PRN Reason: Pain, Moderate (4-6) Last Admin: 07/27/18 16:32 Dose: 2 mg Documented by: Nitroglycerin (Nitrostat) 0.4 mg SL Q5M PRN PRN Reason: Chest Pain Ondansetron HCl (Zofran) 4 mg IV Q8H PRN PRN Reason: Nausea And Vomiting Sodium Chloride (Sodium Chloride Flush Syringe 10 Ml) 10 ml IV BID [facility] Last Admin: 07/27/18 22:17 Dose: 10 ml Documented by: Sodium Chloride (Sodium Chloride Flush Syringe 10 Ml) 10 ml IV PRN PRN PRN Reason: LINE FLUSH Sodium Chloride (Sodium Chloride Flush Syringe 10 Ml) 10 ml IV PRN PRN PRN Reason: LINE FLUSH Review of Systems Constitutional: no weight gain, no fever, no chills Ears, nose, mouth and throat: no ear pain, no tinnitis, no nose pain, no nasal discharge Cardiovascular: chest pain, orthopnea, shortness of breath, dyspnea on exertion, paroxysmal nocturnal dyspnea, decreased exercise tolerance Respiratory: no cough, no cough with sputum, no excessive sputum, no hemoptysis Gastrointestinal: no abdominal pain, no vomiting, no diarrhea, no change in bowel habits Genitourinary Male: no hematuria, no flank pain, no urinary frequency, no urinary hesitancy Rectal: no pain, no incontinence, no bleeding Musculoskeletal: no neck pain, no shooting leg pain Integumentary: no rash, no redness, no wounds Neurological: no head injury, no paralysis, no tingling, no syncope Psychiatric: no anxiety, no change in sleep habits, no insomnia Endocrine: no cold intolerance, no polyphagia, no polydipsia, no nocturia Hematologic/Lymphatic: no easy bruising, no easy bleeding, no lymphadenopathy Allergic/Immunologic: no urticaria, no allergic rhinitis, no persistent infections, no anaphylaxis Exam - Constitutional Vitals: Temp Pulse Resp BP Pulse Ox 98.1 F 65 16 148/76 95 07/28/18 00:21 07/28/18 02:14 07/28/18 00:21 07/28/18 00:21 07/28/18 00:21 General appearance: Present: mild distress, obese - EENT Eyes: Present: PERRL ENT: hearing intact, clear oral mucosa - Neck Neck: Present: supple, normal ROM - Respiratory Respiratory effort: normal Respiratory: bilateral: CTA - Cardiovascular Heart Sounds: Present: S1 & S2. Absent: rub, click - Extremities Extremities: pulses symmetrical Extremity abnormal: edema Peripheral Pulses: within normal limits - Abdominal General gastrointestinal: Present: soft, non-tender, non-distended, normal bowel sounds Male genitourinary: Present: normal - Integumentary Integumentary: Present: clear, warm, dry - Musculoskeletal Musculoskeletal: gait normal, strength equal bilaterally - Psychiatric Psychiatric: appropriate mood/affect, intact judgment & insight - Neurologic Neurologic: CNII-XII intact, moves all extremities Results - Labs CBC & Chem 7: 07/27/18 13:01 07/27/18 13:01 Labs: Abnormal lab results 07/27/18 07/27/18 07/27/18 Range/Units 13:01 13:01 14:55 WBC 3.7 L (4.5-11.0) K/mm3 RBC 6.30 H (3.65-5.03) M/mm3 Hgb 16.2 H (11.8-15.2) gm/dl Hct 48.8 H (35.5-45.6) % MCV 78 L (84-94) fl MCH 26 L (28-32) pg RDW 15.4 H (13.2-15.2) % Plt Count 132 L (140-440) K/mm3 Lymph % (Auto) 36.8 H (13.4-35.0) % [place] % (Auto) 9.9 H (0.0-7.3) % Sodium 129 L (137-145) mmol/L Chloride 89.2 L (98-107) mmol/L Glucose 174 H (75-100) mg/dL POC Glucose (70-105) LDL Cholesterol Direct 144 H (50-130) mg/dL HDL Cholesterol 38 L (40-59) mg/dL 07/27/18 07/27/18 07/28/18 Range/Units 20:35 22:08 05:33 WBC (4.5-11.0) K/mm3 RBC (3.65-5.03) M/mm3 Hgb (11.8-15.2) gm/dl Hct (35.5-45.6) % MCV (84-94) fl MCH (28-32) pg RDW (13.2-15.2) % Plt Count (140-440) K/mm3 Lymph % (Auto) (13.4-35.0) % [place] % (Auto) (0.0-7.3) % Sodium (137-145) mmol/L Chloride (98-107) mmol/L Glucose (75-100) mg/dL POC Glucose 156 H 120 H 133 H (70-105) LDL Cholesterol Direct (50-130) mg/dL HDL Cholesterol (40-59) mg/dL Assessment and Plan - Patient Problems (1) Diastolic CHF Current Visit: Yes Status: Acute Qualifiers: Heart failure chronicity: acute on chronic Qualified Code(s): I50.33 - Acute on chronic diastolic (congestive) heart failure Plan to address problem: Admit to telemetry, blood pressure control, monitor bp q shift, strict I/O, daily weight, chest x ray, bnp, cardiology consulted, previous echo reviewed. (2) Obesity hypoventilation syndrome Current Visit: Yes Status: Acute Plan to address problem: Supplemental oxygen, nebulizer therapy, pulse oximetry, NIPPV as clinically indicated (3) Chest pain Onset Date: 03/08/16 Current Visit: No Status: Acute Qualifiers: Chest pain type: chest pain due to myocardial ischemia Plan to address problem: Admit to telemetry, serial cardiac, enzymes, ekg, morphine, supplemental oxygen, nitro, aspirin, cardiology consulted, review stress test results. (4) Diabetes Current Visit: Yes Status: Acute Plan to address problem: ADA diet, insulin, accu check (5) CAD (coronary artery disease) Current Visit: Yes Status: Acute Qualifiers: Associated angina: with stable angina Plan to address problem: Lipid panel, statin therapy, low cholesterol diet, risk factor reduction (6) DVT prophylaxis Current Visit: Yes Status: Acute Plan to address problem: SCD to BLE while in bed
[2018-07-28] MEDS ORDERED: D50W (25GM) Syringe IV PRN (06:37)
--- NOTE | 2018-07-28 08:37 | Progress Note ---
Assessment and Plan Assessment and plan: Patient is a 68 YO Male with morbid obesity BMI 85.4, CAD, HTN, DM, gout, Obesity Hypoventilation Syndrome, BPH, GERD, DEBORAH, Diastolic CHF, OA presents to ED for evaluation. Pt states that he experienced sudden onset of chest pain this morning. Pt states the pain began approximately 1 hour after eating b reakfast. Pt states that pain is 7-8/10, substernal, nonradiating, worsened with exertion, relieved with nitro, crushing in nature, constant. Pt acknowledges shortness of breath, Orthopnea, PND, decreased exercise tolerance. EMS notified, and patient found to be in distress. Pt transported to [facility]. Pt seen and evaluated in ED and found to have Chest Pain and Diastolic CHF. Pt admitted to telemetry, Cardiology consulted in ED. * pCXR unremarkable -Obesity hypoventilation syndrome: Supplemental oxygen, nebulizer therapy, pulse oximetry, NIPPV as clinically indicated -Chronic Diastolic CHF: monitor bp q shift, strict I/O, daily weight, chest x ray, bnp, cardiology consulted, previous echo reviewed. -Morbid Obesity, BMI 85.4: school guidance counselor on lifestyle modifications -Chest pain: Admit to telemetry, serial cardiac, enzymes, ekg, morphine, supplemental oxygen, nitro, aspirin, cardiology consulted, -Diabetes mellitus: ADA diet, insulin, accu check -CAD (coronary artery disease): low cholesterol diet, risk factor reduction -DVT prophylaxis: SCD to BLE while in bed History Interval history: Patient was seen and examined. Follow-up on current diagnosis of CHF. Overnight uneventful. Patient denies any nausea/vomiting or severe headaches. Imaging, nursing note, chart, labs and old chart reviewed. Discussed with patient. Hospitalist Physical - Physical exam Narrative exam: Gen: WDWN, NAD, BMI 85.4, Awake, Alert, Orientated HEENT: NCAT, EOMI, PERRL, OP Clear Neck: supple, no adenopathy, no thyromegaly, no JVD CVS/Heart: RRR, normal S1S2, pulses present bilaterally Chest/Lungs: diminished, Symmetrical chest expansion, good air entry bilaterally GI/Abdomen: soft, NTND, good bowel sounds, no guarding or rebound /Bladder: no suprapubic tenderness, no CVA or paraspinal tenderness Extermity/Skin: no c/c/e, no obvious rash MSK: FROM x 4 Neuro: CN 2-12 grossly intact, no new focal deficits Psych: calm - Constitutional Vitals: Temp Pulse Resp BP Pulse Ox 97.5 F L 60 18 147/78 97 07/28/18 04:22 07/28/18 04:22 07/28/18 04:22 07/28/18 04:22 07/28/18 04:22 General appearance: Present: obese Results - Labs CBC & Chem 7: 07/27/18 13:01 07/27/18 13:01 Labs: Laboratory Last Values WBC 3.7 K/mm3 (4.5-11.0) L 07/27/18 13:01 RBC 6.30 M/mm3 (3.65-5.03) H 07/27/18 13:01 Hgb 16.2 gm/dl (11.8-15.2) H 07/27/18 13:01 Hct 48.8 % (35.5-45.6) H 07/27/18 13:01 MCV 78 fl (84-94) L 07/27/18 13:01 MCH 26 pg (28-32) L 07/27/18 13:01 MCHC 33 % (32-34) 07/27/18 13:01 RDW 15.4 % (13.2-15.2) H 07/27/18 13:01 Plt Count 132 K/mm3 (140-440) L 07/27/18 13:01 Lymph % (Auto) 36.8 % (13.4-35.0) H 07/27/18 13:01 [place] % (Auto) 9.9 % (0.0-7.3) H 07/27/18 13:01 Eos % (Auto) 3.7 % (0.0-4.3) 07/27/18 13:01 Baso % (Auto) 1.0 % (0.0-1.8) 07/27/18 13:01 Lymph # 1.4 K/mm3 (1.2-5.4) 07/27/18 13:01 [place] # 0.4 K/mm3 (0.0-0.8) 07/27/18 13:01 Eos # 0.1 K/mm3 (0.0-0.4) 07/27/18 13:01 Baso # 0.0 K/mm3 (0.0-0.1) 07/27/18 13:01 Seg Neutrophils % 48.6 % (40.0-70.0) 07/27/18 13:01 Seg Neutrophils # 1.8 K/mm3 (1.8-7.7) 07/27/18 13:01 Sodium 129 mmol/L (137-145) L 07/27/18 13:01 Potassium 3.9 mmol/L (3.6-5.0) 07/27/18 13:01 Chloride 89.2 mmol/L (98-107) L 07/27/18 13:01 Carbon Dioxide 28 mmol/L (22-30) 07/27/18 13:01 Anion Gap 16 mmol/L 07/27/18 13:01 BUN 14 mg/dL (9-20) 07/27/18 13:01 Creatinine 1.3 mg/dL (0.8-1.5) 07/27/18 13:01 Estimated GFR > 60 ml/min 07/27/18 13:01 BUN/Creatinine Ratio 11 % 07/27/18 13:01 Glucose 174 mg/dL (75-100) H 07/27/18 13:01 POC Glucose 133 (70-105) H 07/28/18 05:33 Calcium 8.9 mg/dL (8.4-10.2) 07/27/18 13:01 Total Bilirubin 0.50 mg/dL (0.1-1.2) 07/27/18 13:01 AST 25 units/L (5-40) 07/27/18 13:01 ALT 23 units/L (7-56) 07/27/18 13:01 Alkaline Phosphatase 65 units/L (35-129) 07/27/18 13:01 Troponin T < 0.010 ng/mL (0.00-0.029) 07/27/18 21:34 NT-Pro-B Natriuret Pep 7.38 pg/mL (0-900) 07/27/18 13:01 Total Protein 6.7 g/dL (6.3-8.2) 07/27/18 13:01 Albumin 3.9 g/dL (3.9-5) 07/27/18 13:01 Albumin/Globulin Ratio 1.4 % 07/27/18 13:01 Triglycerides 99 mg/dL (2-149) 07/27/18 14:55 Cholesterol 187 mg/dL (50-199) 07/27/18 14:55 LDL Cholesterol Direct 144 mg/dL (50-130) H 07/27/18 14:55 HDL Cholesterol 38 mg/dL (40-59) L 07/27/18 14:55 Cholesterol/HDL Ratio 4.92 % 07/27/18 14:55
[2018-07-28] MEDS ORDERED: LEXISCAN IV ONE ×2 (10:32→12:00)
--- NOTE | 2018-07-28 11:18 | Consultation ---
Addendum entered and electronically signed by XIN JOLLEY MD 07/28/18 12:14: Patient seen and examined Chest Pain - reason for admission Normal CXR Normal ECG Negative troponin No ischemia by MPI, normal LVEF Non-obstructive coronary artery disease by cath 05/2018 Type II DM Systemic Hypertension Obstructive sleep apnea and COPD Chronic low back pain Recommendations: Patient may follow-up with his primary kitchen helper as outpatient No further cardiac work-up is needed Original Note: History of Present Illness Consult date: 07/28/18 Consult reason: chest pain History of present illness: Patient has a history of lateral wall CO. An emergent cardiac cath late 2016 showed no significant obstructive lesions corresponding with ST elevation on ECG. There was non-obstructive stenosis of the proximal RCA recommended for medical therapy and aggressive risk factor modification. Well preserved LV systolic function, ejection fraction 55-60%. He has not had any recent cardiac workup. Patient presents with complaints of chest pain after eating a meal. There were no complaints of shortness of breath, nausea vomiting or palpitations. There was no syncope. Cycled enzymes are normal and his ECG is sinus rhythm with LVH of early repolarization abnormality. A cardiac consultation was requested for further evaluation. Past History Past Medical History: CAD, diabetes, GERD, hypertension Past Surgical History: total hip replacement, Other (Back, Arm surgery) Social history: , lives with family. denies: smoking, alcohol abuse, prescription drug abuse Family history: diabetes, hypertension Medications and Allergies Allergies Allergy/AdvReac Type Severity Reaction Status Date / Time No Known Allergies Allergy Verified 05/29/17 13:08 Home Medications Medication Instructions Recorded Confirmed Last Taken Type glipiZIDE [Glucotrol] 10 mg PO BID 05/27/13 04/30/18 05/28/17 History Latanoprost 0.005% 1 drop OP HS 06/10/15 05/03/18 05/02/18 History Acetaminophen [Acetaminophen TAB] 325 mg PO Q6H PRN #30 tablet 05/30/17 04/30/18 Unknown Rx Aspirin [Aspirin BABY CHEW TAB] 81 mg PO QDAY #30 tab.chew 05/30/17 04/30/18 Unknown Rx AtorvaSTATin [Lipitor] 20 mg PO QHS #30 tablet 05/30/17 05/03/18 05/01/18 Rx Famotidine [Pepcid] 20 mg PO BID #30 tablet 05/30/17 05/03/18 05/01/18 Rx Losartan [Cozaar] 100 mg PO QDAY #30 tablet 05/30/17 04/30/18 Unknown Rx amLODIPine [Norvasc] 5 mg PO DAILY #30 tablet 05/30/17 05/03/18 05/01/18 Rx hydrALAZINE [Apresoline TAB] 50 mg PO BID #60 tablet 05/30/17 05/03/18 05/01/18 Rx Lotemax 0.5% 1 drop OU TID 04/30/18 05/03/18 05/02/18 History Tamsulosin HCl 1 cap PO DAILY 04/30/18 05/03/18 05/01/18 History Tradjenta 1 tab PO DAILY 04/30/18 05/03/18 05/01/18 History Hydrazine Sulfate 100 mg PO DAILY 05/03/18 05/03/18 05/01/18 History Losartan-Hctz 100-25 mg Tab 1 tab PO 05/03/18 05/01/18 History Active Meds: Active Medications Acetaminophen (Tylenol) 325 mg PO Q6H PRN PRN Reason: Pain , Severe (7-10) Albuterol (Proventil) 2.5 mg IH Q4HRT PRN PRN Reason: Shortness Of Breath Amlodipine Besylate (Norvasc) 5 mg PO DAILY [facility] Aspirin (Baby Aspirin) 81 mg PO QDAY [facility] Atorvastatin Calcium (Lipitor) 20 mg PO QHS [facility] Dextrose (D50w (25gm) Syringe) 50 ml IV PRN PRN PRN Reason: Hypoglycemia Famotidine (Pepcid) 20 mg PO BID [facility] Hydralazine HCl (Apresoline) 50 mg PO BID [facility] Insulin Human Lispro (Humalog) 0 unit SUB-Q ACHS [facility]; Protocol Latanoprost (Latanoprost 0.005%) 1 drops OU QHS [facility] Last Admin: 07/28/18 02:19 Dose: 1 drops Documented by: Latanoprost (Latanoprost 0.005%) 1 drops OD HS [facility] Losartan Potassium (Cozaar) 100 mg PO QDAY [facility] Morphine Sulfate (Morphine) 2 mg IV Q4H PRN PRN Reason: Pain, Moderate (4-6) Last Admin: 07/27/18 16:32 Dose: 2 mg Documented by: Nitroglycerin (Nitrostat) 0.4 mg SL Q5M PRN PRN Reason: Chest Pain Ondansetron HCl (Zofran) 4 mg IV Q8H PRN PRN Reason: Nausea And Vomiting Regadenoson (Lexiscan) 0.4 mg IV ONCE ONE Stop: 07/28/18 12:01 Last Admin: 07/28/18 11:00 Dose: 0.4 mg Documented by: Sodium Chloride (Sodium Chloride Flush Syringe 10 Ml) 10 ml IV BID [facility] Last Admin: 07/27/18 22:17 Dose: 10 ml Documented by: Sodium Chloride (Sodium Chloride Flush Syringe 10 Ml) 10 ml IV PRN PRN PRN Reason: LINE FLUSH Sodium Chloride (Sodium Chloride Flush Syringe 10 Ml) 10 ml IV PRN PRN PRN Reason: LINE FLUSH Tamsulosin HCl (Flomax) 0.4 mg PO DAILY [facility] Physical Examination Vital Signs Pulse Resp 73 13 07/27/18 11:53 07/27/18 11:53 Results 07/27/18 13:01 07/27/18 13:01 Cardiac Enzymes 07/27/18 Range/Units 13:01 AST 25 (5-40) units/L Lipids 07/27/18 Range/Units 14:55 Triglycerides 99 (2-149) mg/dL Cholesterol 187 (50-199) mg/dL HDL Cholesterol 38 L (40-59) mg/dL Cholesterol/HDL Ratio 4.92 % CBC 07/27/18 Range/Units 13:01 WBC 3.7 L (4.5-11.0) K/mm3 RBC 6.30 H (3.65-5.03) M/mm3 Hgb 16.2 H (11.8-15.2) gm/dl Hct 48.8 H (35.5-45.6) % Plt Count 132 L (140-440) K/mm3 Lymph # 1.4 (1.2-5.4) K/mm3 [place] # 0.4 (0.0-0.8) K/mm3 Eos # 0.1 (0.0-0.4) K/mm3 Baso # 0.0 (0.0-0.1) K/mm3 Comprehensive Metabolic Panel 07/27/18 Range/Units 13:01 Sodium 129 L (137-145) mmol/L Potassium 3.9 (3.6-5.0) mmol/L Chloride 89.2 L (98-107) mmol/L Carbon Dioxide 28 (22-30) mmol/L BUN 14 (9-20) mg/dL Creatinine 1.3 (0.8-1.5) mg/dL Glucose 174 H (75-100) mg/dL Calcium 8.9 (8.4-10.2) mg/dL AST 25 (5-40) units/L ALT 23 (7-56) units/L Alkaline Phosphatase 65 (35-129) units/L Total Protein 6.7 (6.3-8.2) g/dL Albumin 3.9 (3.9-5) g/dL Assessment and Plan Chest pain Hx of CO/non-obstructive CAD by [facility] 05/2017 Hypertension Diabetes COPD Plan: Further cardiac evaluation with a stress thallium test today. Results are pending.
[2018-07-28] MEDS: SODIUM CHLORIDE FLUSH SYRINGE 10 ML IV SCH (13:18)
[2018-07-28] MEDS: FLOMAX PO SCH (13:18)
[2018-07-28] MEDS: APRESOLINE PO SCH ×2 (13:18→22:18)
[2018-07-28] MEDS: NORVASC PO SCH (13:18)
[2018-07-28] MEDS: BABY ASPIRIN PO SCH (13:18)
[2018-07-28] MEDS: HumaLOG SUB-Q SCH ×4 (13:18→22:17)
[2018-07-28] MEDS: PEPCID PO SCH ×2 (13:18→22:18)
[2018-07-28] MEDS: TYLENOL PO PRN (18:07)
[2018-07-28] MEDS: COZAAR PO SCH (18:08)
[2018-07-28] MEDS: FLONASE NS SCH (18:12)
[2018-07-28] MEDS ORDERED: LATANOPROST 0.005% OD SCH (22:00)
--- NOTE | 2018-07-28 22:20 | Treadmill Report ---
INDICATION: Chest pain. ORDERING PHYSICIAN: Dr. Westbrook. FINDINGS: There is no scintigraphic evidence of myocardial ischemia. There is evidence of a small fixed mid and basal inferior wall defect of mild intensity. The left ventricular ejection fraction is normal, measured at 61%. There is normal wall motion and wall thickening. CONCLUSION: 1. No scintigraphic evidence of myocardial ischemia. 2. Small fixed inferior wall defect of mild intensity due to overlying diaphragmatic attenuation noted on planar imaging. 3. Normal left ventricular size and function with an ejection fraction of 61%. 4. This is a low risk myocardial perfusion study associated with 1-year cardiovascular event rate of less than 1%. JOB# [id number] LILLY/KATLYN
[2018-07-29] MEDS: SODIUM CHLORIDE FLUSH SYRINGE 10 ML IV SCH ×2 (00:31→14:44)
[2018-07-29] MEDS: TYLENOL PO PRN ×2 (02:44→11:28)
[2018-07-29 06:50] LABS: Hematocrit 47.3 % (35.5-45.6); Hemoglobin 15.7 gm/dl (11.8-15.2); Mean Corpuscular HGB Conc 33 % (32-34); Mean Corpuscular Volume 77 fl (84-94); Platelet Count 133 K/mm3 (140-440); Red Blood Count 6.15 M/mm3 (3.65-5.03); Red Cell Distribution Width 14.8 % (13.2-15.2)
[2018-07-29 08:07] LABS: BUN/Creatinine Ratio 10; Blood Urea Nitrogen 11 mg/dL (9-20); Calcium 8.8 mg/dL (8.4-10.2); Hemolysis Index 17
[2018-07-29] MEDS: APRESOLINE PO SCH (11:13)
[2018-07-29] MEDS: FLOMAX PO SCH (11:14)
[2018-07-29] MEDS: BABY ASPIRIN PO SCH (11:14)
[2018-07-29] MEDS: NORVASC PO SCH (11:14)
[2018-07-29] MEDS: PEPCID PO SCH (11:14)
[2018-07-29] MEDS: COZAAR PO SCH (11:29)
[2018-07-29] MEDS: FLONASE NS SCH (11:30)
--- NOTE | 2018-07-29 13:31 | Progress Note ---
Addendum entered and electronically signed by CORRINE WORKMAN MD 07/29/18 14:16: Conservative cardiac management. Original Note: Assessment and Plan Chest Pain - reason for admission Normal CXR Normal ECG Negative troponin No ischemia by MPI, normal LVEF Non-obstructive coronary artery disease by cath 05/2017 Type II DM Systemic Hypertension Obstructive sleep apnea and COPD Chronic low back pain Conservative cardiac management. Subjective Date of service: 07/29/18 Interval history: Patient complains of headaches. He denies chest pain and shortness of breath. Objective Vital Signs Temp Pulse Resp BP Pulse Ox 07/29/18 11:15 97.8 F 84 20 154/80 94 07/29/18 11:14 145/72 07/29/18 11:13 145/72 07/29/18 10:00 97 07/29/18 07:48 98.0 F 71 20 145/72 95 07/29/18 05:00 98.0 F 78 17 145/64 96 07/28/18 23:48 20 07/28/18 23:40 97.8 F 70 18 165/87 100 07/28/18 21:46 98 07/28/18 20:42 98.0 F 79 17 95 07/28/18 20:35 79 07/28/18 17:57 97.3 F L 18 156/90 - Physical Examination General: No Apparent Distress HEENT: Positive: PERRL Neck: Positive: trachea midline Cardiac: Positive: Reg Rate and Rhythm Lungs: Positive: Decreased Breath Sounds Neuro: Positive: Grossly Intact Extremities: Absent: edema - Labs and Meds CBC 07/29/18 Range/Units 05:54 WBC 3.8 L (4.5-11.0) K/mm3 RBC 6.15 H (3.65-5.03) M/mm3 Hgb 15.7 H (11.8-15.2) gm/dl Hct 47.3 H (35.5-45.6) % Plt Count 133 L (140-440) K/mm3 Comprehensive Metabolic Panel 07/29/18 Range/Units 05:54 Sodium 129 L (137-145) mmol/L Potassium 3.6 (3.6-5.0) mmol/L Chloride 90.1 L (98-107) mmol/L Carbon Dioxide 24 (22-30) mmol/L BUN 11 (9-20) mg/dL Creatinine 1.1 (0.8-1.5) mg/dL Glucose 141 H (75-100) mg/dL Calcium 8.8 (8.4-10.2) mg/dL
[2018-07-29] MEDS: HumaLOG SUB-Q SCH ×2 (14:44→18:43)
[2018-07-29 16:19] VITALS: BP 170/83
--- NOTE | 2018-07-29 17:23 | Discharge Summary ---
Providers - Providers Date of Admission: 07/27/18 14:37 Date of discharge: 07/29/18 Attending physician: SHAE MAY 07/27/18 Consult to Cardiac Rehabilitation [CONS] Routine Reason For Exam: Phase I 07/27/18 14:38 Consult to Cardiology [CONS] Routine Consulting Provider: CORRINE WORKMAN Reason For Exam: chest pain Primary care physician: NOHEMI ETIENNE Hospitalization Condition: Stable Hospital course: Patient is a 68 YO Male with morbid obesity BMI 85.4, CAD, HTN, DM, gout, Obesity Hypoventilation Syndrome, BPH, GERD, DEBORAH, Diastolic CHF, OA presents to ED for evaluation. Pt states that he experienced sudden onset of chest pain this morning. Pt states the pain began approximately 1 hour after eating breakfast. Pt states that pain is 7-8/10, substernal, nonradiating, worsened with exertion, relieved with nitro, crushing in nature, constant. Pt acknowledges shortness of breath, Orthopnea, PND, decreased exercise tolerance. EMS notified, and patient found to be in distress. Pt transported to [facility]. Pt seen and evaluated in ED and found to have Chest Pain and Diastolic CHF. Pt admitted to telemetry, Cardiology consulted in ED. * pCXR unremarkable -Obesity hypoventilation syndrome: Supplemental oxygen, nebulizer therapy, pulse oximetry, NIPPV as clinically indicated, cpap needs adjustment most likely -Chronic Diastolic CHF: monitor bp q shift, strict I/O, daily weight, chest x ray, bnp, cardiology consulted, previous echo reviewed. -Morbid Obesity, BMI 85.4: probation counselor on lifestyle modifications -Chest pain: Admit to telemetry, serial cardiac, enzymes, ekg, morphine, supplemental oxygen, nitro, aspirin, cardiology consulted, -Diabetes mellitus: ADA diet, insulin, accu check -CAD (coronary artery disease): low cholesterol diet, risk factor reduction -DVT prophylaxis: SCD to BLE while in bed Disposition: DC- TO HOME OR SELFCARE Time spent for discharge: 36 minutes Core Measure Documentation - Palliative Care Palliative Care/ Comfort Measures: Not Applicable - Core Measures Any of the following diagnoses?: none - VTE Discharge Requirements Deep Vein Thrombosis/Pulmonary Embolism Present on Admission: No Has pt received <5 days of overlap therapy or INR<2.0: No Anticoagulant overlap therapy prescribed at discharge: No Contraindication No Overlap Therapy order at DC: Not Indicated Exam - Physical Exam Narrative exam: Gen: WDWN, NAD, BMI 85.4, Awake, Alert, Orientated HEENT: NCAT, EOMI, PERRL, OP Clear Neck: supple, no adenopathy, no thyromegaly, no JVD CVS/Heart: RRR, normal S1S2, pulses present bilaterally Chest/Lungs: diminished, Symmetrical chest expansion, good air entry bilaterally GI/Abdomen: soft, NTND, good bowel sounds, no guarding or rebound /Bladder: no suprapubic tenderness, no CVA or paraspinal tenderness Extermity/Skin: no c/c/e, no obvious rash MSK: FROM x 4 Neuro: CN 2-12 grossly intact, no new focal deficits Psych: calm - Constitutional Vitals: Temp Pulse Resp BP Pulse Ox 98.3 F 85 20 170/83 94 07/29/18 16:18 07/29/18 16:18 07/29/18 16:18 07/29/18 16:18 07/29/18 16:18 Plan Activity: other (no strenous activity unless cleared by PCP) Diet: low salt Special Instructions: record daily BP diary, record blood sugar diary Follow up with: NOHEMI ETIENNE MD [Primary Care Provider] - 7 Days CORRINE WORKMAN MD [Staff Physician] - 7 Days LAVONNE MOCK MD [Staff Physician] - 7 Days Prescriptions: amLODIPine [Norvasc] 5 mg PO DAILY #30 tablet
== END 2018-07-29 19:40 | disposition home or self-care (01) | DRG 291 ==
LOC: ED 11:47 → 4A 14:37
PROVIDERS: ADMIT Internal Medicine; ATTEND Internal Medicine
PROC: 5A09357 Assistance with Respiratory Ventilation, Less than 24 Consecutive Hours, Continuous Positive Airway Pressure (ICD-10-PCS; principal; 2018-07-28)
DX: I11.0 Hypertensive heart disease with heart failure (principal); R65.11 Systemic inflammatory response syndrome (SIRS) of non-infectious origin with acute organ dysfunction; E66.2 Morbid (severe) obesity with alveolar hypoventilation; Z68.45 Body mass index [BMI] 70 or greater, adult; R07.9 Chest pain, unspecified; E11.9 Type 2 diabetes mellitus without complications; I50.33 Acute on chronic diastolic (congestive) heart failure; K21.9 Gastro-esophageal reflux disease without esophagitis; I25.10 Atherosclerotic heart disease of native coronary artery without angina pectoris; M10.9 Gout, unspecified; Z96.642 Presence of left artificial hip joint; M54.9 Dorsalgia, unspecified; D64.9 Anemia, unspecified; E78.5 Hyperlipidemia, unspecified; N40.0 Benign prostatic hyperplasia without lower urinary tract symptoms; Z71.3 Dietary counseling and surveillance; Z79.84 Long term (current) use of oral hypoglycemic drugs; Z79.899 Other long term (current) drug therapy; Z79.82 Long term (current) use of aspirin; Z83.3 Family history of diabetes mellitus; Z82.49 Family history of ischemic heart disease and other diseases of the circulatory system
CPT/HCPCS: 36415; 71045; 78452; 80048; 80053; 80061; 82962; 83880; 84484; 85025; 85027; 93005; 93010; 93017; 94660; G0378; A9270-GY; A9502; J2270; J2785